=== PATIENT | male | born 1995 | race Caucasian/White ===

== ENCOUNTER 2021-03-30 09:44 | Emergency (ER) | payer OTHER, BC ==
[~2021-03-30] VITALS: Ht 170.1 cm; Wt 80.9 kg
--- NOTE | 2021-03-30 09:58 | ED Upper Extremity ---
General Stated Complaint: WC RT ARM INJ History of Present Illness Date Seen by Provider: Mar 30, 2021 Time Seen by Provider: 09:56 Initial Comments 25-year-old male presents with right arm injury along with diffuse neck spasm and tightness. Patient reports that he was at work last night when he got his hand caught and got twisted around a machine. His neck was crooked in his shoulder has decreased range of motion with pain and limited ability to lift beyond approximately 70 degrees abduction flexion or extension. Patient feels like his shoulder sets little lower than it has previously. Patient has an abrasion on his right chest wall from the injury. Allergies and Home Medications Allergies Coded Allergies: Penicillins (Unverified Adverse Reaction, Unknown, 03/30/21) hydrocodone (Unverified Adverse Reaction, Unknown, 03/30/21) meperidine (Unverified Adverse Reaction, Unknown, 03/30/21) tramadol (Unverified Adverse Reaction, Unknown, 03/30/21) Home Medications No Active Prescriptions or Reported Meds Patient Home Medication List Home Medication List Reviewed: Yes Review of Systems Constitutional: No chills, No fever EENTM: no symptoms reported Respiratory: no symptoms reported Cardiovascular: no symptoms reported Gastrointestinal: no symptoms reported Genitourinary: no symptoms reported Musculoskeletal: see HPI Skin: no symptoms reported Psychiatric/Neurological: No Symptoms Reported Physical Exam Vital Signs Vital Signs - First Documented 03/30/21 09:57 Temp 36.4 Pulse 74 Resp 16 B/P (MAP) 139/69 (92) Pulse Ox 99 O2 Delivery Room Air Capillary Refill : Height, Weight, BMI Height: '" Weight: lbs. oz. kg; BMI Method: General Appearance: WD/WN, no apparent distress Neck: full range of motion, tender lateral; No tender midline; other (No vertebral tenderness) Cardiovascular: normal peripheral pulses, regular rate, rhythm Respiratory: lungs clear, normal breath sounds Gastrointestinal: non tender, soft Shoulder: No deformity; limited ROM, soft tissue tenderness; No swelling Elbow/Forearm: normal ROM, soft tissue tenderness Wrist: Yes normal inspection, Yes non-tender, Yes no evidence of injury Hand: normal inspection, non-tender, no evidence of injury Neurologic/Tendon: normal sensation Neurologic/Psychiatric: alert, normal mood/affect, oriented x 3 Skin: other (Abrasion right chest wall) Progress/Results/Core Measures Results/Orders My Orders Orders - ROBLES,ABELARDO L DO Cervical Spine 3 View Or Less (03/30/21 09:59) Shoulder 3 View Right (03/30/21 09:59) Ketorolac Injection (Toradol Injection) (03/30/21 10:32) Orphenadrine Inj (Ed Only) (Norflex Inje (03/30/21 10:32) Dipht,Pertuss(Acell),Tet Adult (Boostrix (03/30/21 10:45) Medications Given in ED Current Medications Medications Dose Ordered Sig/Judith Route Start Time Stop Time Status Last Admin Dose Admin Diphtheria/ Tetanus/Acell Pertussis 0.5 ml ONCE ONCE IM 03/30/21 10:45 03/30/21 10:46 DC 03/30/21 10:46 0.5 ML Vital Signs/I&O 03/30/21 03/30/21 09:57 10:50 Temp 36.4 36.2 Pulse 74 71 Resp 16 16 B/P (MAP) 139/69 (92) 135/62 (92) Pulse Ox 99 98 O2 Delivery Room Air Room Air Progress Progress Note : Progress Note Patient with no acute fractures on cervical or shoulder x-rays. Patient with likely rotator cuff injury to his right shoulder. I discussed with him need to follow-up with orthopedic surgeon for further evaluation with physical therapy versus MRI and further work-up. Patient with cervical paraspinal muscle strain. Patient encouraged to use topical lidocaine, ibuprofen, Tylenol and ice to the the area to help with the spasm and pain. Patient is stable and discharged home Diagnostic Imaging Diagonstic Imaging: Xray Plain Films/CT/US/NM/MRI: other Comments SHOULDER 3 VIEW RIGHT CLINICAL HISTORY: Right shoulder pain. COMPARISON: None. TECHNIQUE: Three views of the right shoulder. FINDINGS: There is no acute fracture or dislocation of the right shoulder. Alignment is anatomic. The imaged joint spaces are preserved. No joint effusion is seen in the right shoulder. The included right lung is clear. IMPRESSION: 1. No acute fracture or dislocation in the right shoulder. Reviewed: Reviewed by Me, Reviewed/Discussed Diagonstic Imaging: Xray Plain Films/CT/US/NM/MRI: c-spine Comments Date of Exam:03/30/21 CERVICAL SPINE 3 VIEW OR LESS CLINICAL HISTORY: Right shoulder and neck pain. COMPARISON: None. TECHNIQUE: Three views of the cervical spine. FINDINGS: There is no acute fracture or dislocation of the cervical spine. Alignment is anatomic. The imaged joint spaces are preserved. No focal osseous lesions are seen in the cervical spine. No significant degenerative changes are present. The prevertebral soft tissues are unremarkable. The included lungs are clear. IMPRESSION: 1. No acute fracture or dislocation in the cervical spine. Reviewed: Reviewed by Me, Reviewed/Discussed Departure Impression Primary Impression: Other injury of muscle(s) and tendon(s) of the rotator cuff of right shoulder, initial encounter Additional Impressions: Cervical strain, acute Qualified Codes: S16.1XXA - Strain of muscle, fascia and tendon at neck level, initial encounter Abrasion of right chest wall Qualified Codes: S20.311A - Abrasion of right front wall of thorax, initial encounter Disposition: HOME, SELF-CARE Condition: Stable Departure-Patient Inst. Referrals: PIPPA LLOYD NO,LOCAL PHYSICIAN (PCP) Primary Care Physician Patient Instructions: Rotator Cuff Injury (DC), Whiplash, Abrasions ED Add. Discharge Instructions: Follow-up with orthopedic surgeon next week for reevaluation and further outpatient management and recommendation Activity is based on patient's pain and ability to have range of motion with right arm 4% topical lidocaine with menthol to the right shoulder and neck region as indicated on package Tylenol ibuprofen as needed for pain Scripts No Active Prescriptions or Reported Meds ABELARDO ROBLES DO Mar 30, 2021 09:58
--- NOTE | 2021-03-30 10:27 | Diagnostic Imaging Report ---
CLINICAL HISTORY: Right shoulder and neck pain. COMPARISON: None. TECHNIQUE: Three views of the cervical spine. FINDINGS: There is no acute fracture or dislocation of the cervical spine. Alignment is anatomic. The imaged joint spaces are preserved. No focal osseous lesions are seen in the cervical spine. No significant degenerative changes are present. The prevertebral soft tissues are unremarkable. The included lungs are clear. IMPRESSION: 1. No acute fracture or dislocation in the cervical spine. Dictated by: Dictated on workstation # [id number]
--- NOTE | 2021-03-30 10:29 | Diagnostic Imaging Report ---
CLINICAL HISTORY: Right shoulder pain. COMPARISON: None. TECHNIQUE: Three views of the right shoulder. FINDINGS: There is no acute fracture or dislocation of the right shoulder. Alignment is anatomic. The imaged joint spaces are preserved. No joint effusion is seen in the right shoulder. The included right lung is clear. IMPRESSION: 1. No acute fracture or dislocation in the right shoulder. Dictated by: Dictated on workstation # [id number]
[2021-03-30] MEDS ORDERED: ORPHENADRINE 60 MG/2 ML (NORFLEX) AMP (ED ONLY) IM STA (10:32)
[2021-03-30] MEDS ORDERED: KETOROLAC 30 MG/ML VIAL IM STA (10:32)
[2021-03-30] MEDS ORDERED: TETANUS,DIPTH,PERTUSS P/F (BOOSTRIX) 0.5 ML VIAL IM ONE (10:45)
[2021-03-30 10:50] VITALS: BP 135/62
== END 2021-03-30 10:50 | disposition home or self-care (01) ==
LOC: ER FS 09:46
DX: S16.1XXA Strain of muscle, fascia and tendon at neck level, initial encounter (principal); S20.311A Abrasion of right front wall of thorax, initial encounter; S46.091A Other injury of muscle(s) and tendon(s) of the rotator cuff of right shoulder, initial encounter; Z23 Encounter for immunization; W23.0XXA Caught, crushed, jammed, or pinched between moving objects, initial encounter
CPT/HCPCS: 72040; 73030; 90715

== ENCOUNTER 2021-04-04 04:13 | Emergency (ER) | payer OTHER, BC ==
[~2021-04-04] VITALS: Ht 170 cm; Wt 80.9 kg
[2021-04-04 04:15] VITALS: BP 135/75
[2021-04-04] MEDS ORDERED: ORPHENADRINE 60 MG/2 ML (NORFLEX) AMP (ED ONLY) IM STA (04:46)
[2021-04-04] MEDS ORDERED: KETOROLAC 60 MG/2 ML VIAL IM STA (04:46)
--- NOTE | 2021-04-04 04:56 | ED Upper Extremity ---
General Chief Complaint: Upper Extremity Stated Complaint: WC,RT ARM/SHOULDER PAIN Nursing Triage Note: Pt awake, alert, oriented, ambulated from waiting room to ER 1 without difficulty. Pt states that he was here Friday for a work-related injury to his right shoulder. Pt states that he followed up with the workers comp clinic et his PCP. Pt has an appointment to see ortho. Pt reports that tonight, his arm became more painful, discolored at some point, et feels numb. Decreased ability to open et close right hand. Denies new injury. Strong radial pulse, brisk capillary refill. Airway intact. Respirations even et unlabored. Skin warm, dry, appropriate for ethnicity. Source: patient, old records History of Present Illness Date Seen by Provider: Apr 04, 2021 Time Seen by Provider: 04:15 Initial Comments 25-year-old male presenting from work due to increased pain in the right shoulder region. He had an injury last week and was seen in the emergency department Friday morning March 30. From there he had followed up with [email or web address] and with Dr. Lopez. He states that neither follow-up visit addressed his pain. 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 He states he has increased tingling in his right arm and decreased range of motion due to pain as well as feeling like he just cannot move it. He has been told he is to follow-up with orthopedics but was not given a time when he left the clinic yesterday. Since his pain was so much more severe this morning he left work to come to the emergency department. He last took some Tylenol and aspirin a few hours ago but felt that it was not helping with his pain. Onset: last week Severity: severe Pain/Injury Location: right shoulder, right arm (upper arm) Method of Injury: twisted Modifying Factors: Worse With Movement Allergies and Home Medications Allergies Coded Allergies: Penicillins (Unverified Adverse Reaction, Unknown, 03/30/21) hydrocodone (Unverified Adverse Reaction, Unknown, 03/30/21) meperidine (Unverified Adverse Reaction, Unknown, 03/30/21) tramadol (Unverified Adverse Reaction, Unknown, 03/30/21) Home Medications No Active Prescriptions or Reported Meds Patient Home Medication List Home Medication List Reviewed: Yes Review of Systems Constitutional: no symptoms reported EENTM: no symptoms reported Respiratory: no symptoms reported Cardiovascular: no symptoms reported Gastrointestinal: no symptoms reported Genitourinary: no symptoms reported Musculoskeletal: see HPI, joint pain (right shoulder pain from trapezius to shoulder, down arm, and onto front of chest in pectoral muscle) Skin: change in color (reports his arm was purple after he had slept on it yesterday) Psychiatric/Neurological: Anxiety, Tingling (RUE from shoulder down into his hand and fingers) Past Oluzsci-Pvzacg-Itlakc Hx Patient Social History Tobacco Use?: No Use of E-Cig and/or Vaping [place]: Never a User Substance use?: No Alcohol Use?: No Pt feels they are or have been: No Immunizations Up To Date Influenza Vaccine Up-to-Date: No; Not Current Past Medical History Surgery/Hospitalization HX: Cholestectomy, Appendectomy Physical Exam Vital Signs Vital Signs - First Documented 04/04/21 04:15 Temp 36.1 Pulse 93 Resp 20 B/P (MAP) 135/75 (95) Pulse Ox 96 O2 Delivery Room Air Capillary Refill : Less Than 3 Seconds Height, Weight, BMI Height: '" Weight: lbs. oz. kg; 27.00 BMI Method: General Appearance: WD/WN, mild distress Cardiovascular: normal peripheral pulses, regular rate, rhythm Respiratory: lungs clear, normal breath sounds, no respiratory distress, no accessory muscle use Shoulder: No deformity, No ecchymosis; limited ROM (due to pain and pt actively resisting me trying to move his arm through ROM on right shoulder), pain (right shoulder on trapezius, pectoral muscles, upper arm), soft tissue tenderness (with palpation anywhere on his right shoulder) Hand: Right, limited ROM (limited movement of fingers on right hand when asking him to squeeze my fingers but was able to grasp his hat to move it) 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, alert, oriented x 3, sensory deficit (reports tingling in right hand and arm) Skin: normal color, warm/dry Progress/Results/Core Measures Results/Orders My Orders Orders - KAMALA KEITA MD Ketorolac Injection (Toradol Injection) (04/04/21 04:46) Orphenadrine Inj (Ed Only) (Norflex Inje (04/04/21 04:46) Rx-Oxycodone/Apap 5-325 Mg (Rx-Percocet (04/04/21 05:00) Ed Ortho/Other Supplies Order (04/04/21 04:47) Orthopedic Equiment (04/04/21 04:47) Medications Given in ED Current Medications Medications Dose Ordered Sig/Judith Route Start Time Stop Time Status Last Admin Dose Admin Oxycodone/ Acetaminophen 1 ea Q4H PRN PO 04/04/21 05:00 04/04/21 04:58 1 EA Vital Signs/I&O 04/04/21 04/04/21 04:15 04:53 Temp 36.1 36.1 Pulse 93 Resp 20 B/P (MAP) 135/75 (95) Pulse Ox 96 O2 Delivery Room Air 2 Blood Pressure Mean: 95 Progress Progress Note : Progress Note As his x-rays from Friday did not demonstrate any acute fracture or dislocation and he denies any acute injury since then will defer repeat imaging. With his complaint of increased pain and tingling sensation in his right upper extremity he states he is also concerned about rotator cuff injury. I advised him that to evaluate for nerve and rotator cuff injuries he would need an MRI or testing beyond what I have available in the emergency department. I can give him a shot to help with pain and inflammation as well as muscle relaxer and sent him with a few pain pills to get him by until this morning when the clinic opens. We can do a sling to allow his arm to rest. And note for work saying to be off today and to use light duty with no use of the right arm until cleared by clinic. Use the sling until Friday. Patient states he can tolerate oxycodone so will send a 4 pack of 5/325 mg of oxycodone/acetaminophen with him. Take 1 every 4 hours as needed for severe pain. Otherwise, ice, rest, sling and check with clinic. Departure Impression Primary Impression: Pain of right shoulder region Additional Impressions: Muscle strain of right shoulder region Qualified Codes: S46.911D - Strain of unspecified muscle, fascia and tendon at shoulder and upper arm level, right arm, subsequent encounter Tingling of right upper extremity Disposition: HOME, SELF-CARE Condition: Stable Departure-Patient Inst. Decision time for Depature: 04:51 Referrals: SARIAH LOPEZ MD NO,LOCAL PHYSICIAN (PCP) Primary Care Physician Patient Instructions: How to Use a Shoulder Sling ED, Opioids for Short-Term Treatment of Pain ED, Shoulder Sprain ED, Muscle Strain ED Add. Discharge Instructions: Use sling for support of the right shoulder and upper arm. Use this at all times for the next few days to let your arm rest and stay supported. Do not continue to use the sling for more then 3-4 days as your shoulder will s tart to freeze up and stiffen from not being moved. Follow up with Dr. Lopez and Work Comp today as they will have to be the ones to manage your increased pain to the shoulder area and see if they can speed up the arrangements for MRI or at least Orthopedic evaluation of your shoulder You could still apply ice 20-30 minutes every few hours as needed for pain and inflammation. Use the Oxycodone/Acetaminophen for severe pain until you can check with the clinic later this morning. All discharge instructions reviewed with patient and/or family. Voiced understanding. Scripts No Active Prescriptions or Reported Meds Work/School Note: Work Release Form Date Seen in the Emergency Department: Apr 04, 2021 Return to Work: Apr 05, 2021 Restrictions: Need Release from Doctor Other Restrictions Listed Below: Wear sling until 04/07. Light duty with no use of Right arm until cleared KAMALA KEITA MD Apr 04, 2021 04:56
[2021-04-04] MEDS ORDERED: RX-OXYCODONE/APAP 5-325 MG #4 TAB PK PO PRN (05:00)
== END 2021-04-04 05:08 | disposition home or self-care (01) ==
LOC: EDUNIT# 04:13 → ER FS 04:14
DX: S46.911D Strain of unspecified muscle, fascia and tendon at shoulder and upper arm level, right arm, subsequent encounter (principal); R20.2 Paresthesia of skin; Z88.5 Allergy status to narcotic agent; X58.XXXD Exposure to other specified factors, subsequent encounter; Y92.59 Other trade areas as the place of occurrence of the external cause; Y99.0 Civilian activity done for income or pay
CPT/HCPCS: 99284